=== PATIENT | female | born 1965 ===

== ENCOUNTER 2024-11-25 22:51 | Emergency (ER) | payer OTHER, SELFPAY ==
[2024-11-25 22:56] VITALS: BP 138/86
[2024-11-26 00:18] VITALS: BP 118/75
[2024-11-26 00:19] VITALS: BMI 31.6
--- NOTE | 2024-11-26 00:21 | ED.GENMED ---
History of Present Illness
General
Chief Complaint: Extremity Pain (non-traumatic)
Source: patient and family
Exam Limitations: none
Time Seen by Provider: 11/25/24 23:36
Nursing documentation reviewed up to this point in time: agreed with
History of Present Illness
History of Present Illness:
Patient presents ED secondary to persistent pain behind her right knee radiating up to her thigh and down to her calf, starting yesterday. Denies direct trauma. Denies loss of sensation or weakness. Pain is worse when ambulating or with any range
of motion. Denies previous history of similar symptoms. There is family history of blood clots however. Denies any chest pain or shortness of breath.
Past History
Past History
ED Past Medical History: GERD and Hypercholesterolemia
ED Past Surgical History: Gynecological and Other
Social History
Tobacco: Non-smoker
Alcohol: None
Drug: None
Personal:
Living: with family
Employment: Not employed
Family History
Family History: Other (Mother with cancer of the uterus)
Review of Systems
Review of Systems
Allergies reviewed?: Yes
All Other Systems: ROS reviewed and negative except as documented in HPI and ROS
Constitutional: Reports no symptoms
Musculoskeletal: Reports other (Knee and calf pain yes)
Skin: Reports no symptoms
Neurological: Reports no symptoms; Denies weakness or numbness
Phy Exam
Physical Exam
Physical Exam:
Physical Exam
General: no apparent distress, not acutely ill. afebrile
Head: nc/at. eomi
Neck: supple. normal range of motion
Neuro: alert and oriented x 3. no focal neurological deficits
Skin: no rash
Psychiatric: well kept. interactive and cooperative
Extremities: mild tenderness to palpation noted behind right knee without warmth/swelling/erythema. mild right calf tenderness to palpation, without swelling/ecchymosis
Course
Orders/Labs/Results
Orders:
Orders
11/26/24 00:03
US Legs, Right [US Periph Venous LOWER Ext RT] Urgent
Comment:
Reason For Exam: posterior knee pain w swelling
Vital Signs
Initial and Last Documented VS:
Initial Vital Signs
Temp Pulse Resp BP Pulse Ox
97.8 F 88 20 138/86 100
11/25/24 22:56 11/25/24 22:56 11/25/24 22:56 11/25/24 22:56 11/25/24 22:56
Last Documented Vital Signs
Temp Pulse Resp BP Pulse Ox
97.8 F 88 20 138/86 100
11/25/24 22:56 11/25/24 22:56 11/25/24 22:56 11/25/24 22:56 11/25/24 22:56
MDM/Problems Addressed
MDM/Problems Addressed:
US LE: no DVT.
Patient will be discharged home in stable condition, to the care of her family, with recommendation for pcp f/u, including potential repeat US LE, if symptoms persist.
ED Attending Note
-
Portions of this chart may have been created with voice recognition software.� Occasional wrong word or��sound alike� substitutions may have occurred due to the inherent limitations of voice recognition software.
Discharge Plan
Departure
Patient Disposition: Home (Routine Discharge)
Date of Disposition: 11/26/24
Time of Disposition: 01:09
Patient with high blood pressure during this ER visit?: Yes
Discharge Problem:
Leg pain
Instructions: Muscle and Bone Pain (DC)
Prescriptions:
No Action
pantoprazole 40 MG tablet,delayed release (DR/EC)
40 mg PO DAILY
multivitamin Tablet
1 tab PO DAILY
celecoxib 200 mg Capsule
200 mg PO HS
cetirizine 10 mg Tablet
10 mg PO HS
sucralfate 1 gram Tablet
1 g PO TID
famotidine 40 mg Tablet
40 mg PO HS
acetaminophen [Tylenol Extra Strength] 500 mg Capsule
1,000 mg PO PRN PRN (Reason: HEADACHE)
folic acid 1 mg Tablet
1 mg PO DAILY
montelukast 10 mg Tablet
10 mg PO DAILY
Pulmicort Flexhaler 90 mcg/actuation Aerosol Powdr Breath Activated
1 inh INHALATION DAILY PRN (Reason: sob)
methotrexate sodium 2.5 mg
4 tab PO .BID ONCE PER WEEK
prednisolone
1 mg PO DAILY
Referrals:
Afshan Christiansen MD [Family Provider] -
Activity Restrictions/Additional Instructions:
As discussed, please follow-up with your primary care physician for reevaluation, including repeat ultrasound in 1 week, if symptoms persist.
Interventions
Interventions:
*Risk Screen - Suicide Last Done: 11/25/24 22:56
*General Assessment Last Done: 11/26/24 00:19
*Neglect/Abuse Screening Last Done: 11/25/24 22:56
ED- Fall Risk Assessment Last Done: 11/26/24 00:19
*ED COVID-19 Vaccine History Last Done: 11/26/24 00:19
ED-Skin Assessment Last Done: 11/26/24 00:19
ED-Peripheral Vascular Assessment Last Done: 11/26/24 00:19
ED-Musculoskeletal Assessment Last Done: 11/26/24 00:19
Discharge Date and Time
Print Language: [place]
[2024-11-26 01:00] VITALS: BP 107/69
== END 2024-11-26 01:20 | disposition home or self-care (01) ==
LOC: EMR 22:51
PROVIDERS: EMERGENCY PHYSICIAN Emergency Medicine; FAMILY PHYSICIAN Internal Medicine
DX: M79.604 Pain in right leg (principal); E78.00 Pure hypercholesterolemia, unspecified; K21.9 Gastro-esophageal reflux disease without esophagitis
CPT/HCPCS: 99284; 93971

== ENCOUNTER 2025-10-15 16:45 | Emergency (ER) | payer OTHER, SELFPAY ==
[2025-10-15 16:57] VITALS: BP 132/77
[2025-10-15 17:24] LABS: Hematocrit 40.6 % (37.0-47.0); Hemoglobin 13.7 g/dL (12.0-16.0); Mean Corp Hgb Conc. 33.7 g/dL (33.0-37.0); Mean Corpuscular Volume 89.2 fL (81.0-99.0); Nucleated Red Blood Cells % 0 %; Platelet Count 327 10^3/uL (130-400); Red Cell Dist. Width 12.1 % (11.5-14.5)
[2025-10-15 17:43] LABS: HCG, Serum Qualitative Screen Negative
[2025-10-15 17:47] LABS: ALT (SGPT) 59 U/L (0-35); AST (SGOT) 50 U/L (14-36); Albumin 4.9 g/dl (3.5-5.0); Alkaline Phosphatase 95 U/L (38-126); Blood Urea Nitrogen 12 mg/dl (7-17); Calcium 9.9 mg/dl (8.4-10.2); Carbon Dioxide 21 mmol/L (22-30); Chloride 106 mmol/L (98-107); Glucose 146 mg/dl (70-99); Potassium 3.9 mmol/L (3.5-5.1); Sodium 137 mmol/L (135-145); Total Protein 8.3 g/dl (6.3-8.2); eGFR > 60.00
[2025-10-15 17:55] LABS: Troponin I < 0.012 ng/ml
[2025-10-15 18:24] VITALS: BP 136/64; BMI 31.2
--- NOTE | 2025-10-15 18:31 | ED.GENMED ---
History of Present Illness
General
Chief Complaint: Breathing Problem
Source: patient and spouse
Time Seen by Provider: 10/15/25 18:02
History of Present Illness
History of Present Illness:
59-year-old female presenting to the emergency department for evaluation of cough, shortness of breath, sore throat and sinus congestion which started yesterday, went to urgent care where she reportedly had COVID testing done that was negative and
given prescription for methylprednisolone but today with continued symptoms. No known sick contacts, recent travel or recent antibiotics. Patient did not take anything else for symptoms prior to arrival. States cough is nonproductive. No other
concerns presently.
Past History
Past History
ED Past Medical History: GERD and Hypercholesterolemia
ED Past Surgical History: Gynecological and Other
Social History
Tobacco: Non-smoker
Alcohol: None
Drug: None
Personal:
Living: with family
Employment: Not employed
Family History
Family History: Other (Mother with cancer of the uterus)
Review of Systems
Review of Systems
All Other Systems: ROS reviewed and negative except as documented in HPI and ROS
Phy Exam
Physical Exam
Physical Exam:
GENERAL: Alert , in no apparent distress
HEAD: Normocephalic atraumatic
EYE: conjunctiva clear
NECK: Supple, no significant adenopathy.
ENT: o/p clr, mmm. No tonsillar edema or exudates, uvula midline, airway patent
CARDIAC: Regular rate and rhythm
LUNGS: Clear breath sounds bilaterally, no acute respiratory distress, no wheezes/rales/rhonchi
NEUROLOGICAL: Alert and oriented
SKIN: Warm and dry, skin intact.
MUSCULOSKELETAL: well perfused.
PSYCH: Normal and appropriate interaction.
Scores
Heart Failure Risk
Heart Failure Risk Score: Not Applicable
Heart Score for Chest Pain Patients
STEMI patient?: Not applicable
Withdrawal Assessment of Alcohol
Withdrawal Assessment Completed?: Not applicable
Course
Orders/Labs/Results
Orders:
Orders
10/15/25 16:46
Electrocardiogram (*1) Urgent
Reason for Study: Chest Pain
EKG- Treatment ONCE
10/15/25 17:06
Test Result ONCE
10/15/25 17:14
Complete Blood Count/With Diff Urgent
Comprehensive Metabolic Panel Urgent
HCG, Serum Qualitative Screen Urgent
Troponin I Urgent
10/15/25 18:03
CR Chest - 2 Views Urgent
Comment:
Reason For Exam: cough
10/15/25 18:28
COVID-19 Antigen Urgent
Source: Nasal Swab
Influenza A+B Rapid Molecular Urgent
MAISHA Source: Nasal Swab
Specimen Description:
10/15/25 18:29
Rapid Strep Group A Urgent
MAISHA Source: Throat/Pharynx
Specimen Description:
Date Specimen was Collected: 10/15/25
Time Specimen was Collected: 18:28
Abnormal Lab Results
10/15/25
17:14
MPV 10.6 H fL
(7.4-10.4)
Absolute Neuts (auto) 8.5 H 10^3/uL
(1.4-6.5)
Absolute Lymphs (auto) 0.4 L 10^3/uL
(1.2-3.4)
Neutrophils % 92.0 H %
(42.2-75.2)
Lymphocytes % 3.8 L %
(20.5-51.1)
Carbon Dioxide 21 L mmol/L
(22-30)
Glucose 146 H mg/dl
(70-99)
AST 50 H U/L
(14-36)
ALT 59 H U/L
(0-35)
Total Protein 8.3 H g/dl
(6.3-8.2)
12/25/25 17:14
10/15/25 17:14
Vital Signs
Initial and Last Documented VS:
Initial Vital Signs
Temp Pulse Resp BP Pulse Ox
99 F 99 18 132/77 97
10/15/25 16:57 10/15/25 16:57 10/15/25 16:57 10/15/25 16:57 10/15/25 16:57
Last Documented Vital Signs
Temp Pulse Resp BP Pulse Ox
99.2 F 86 18 136/64 96
10/15/25 18:24 10/15/25 18:24 10/15/25 18:24 10/15/25 18:24 10/15/25 18:37
MDM/Problems Addressed
Differential Diagnosis Includes:
Influenza
Covid
Pneumonia
Strep Pharyngitis
Viral syndrome
Sinusitis
MDM/Problems Addressed:
59-year-old female presenting to the ER for evaluation of cough, shortness of breath, sinus congestion and sore throat x 1 day. Negative covid test at yesterday. Afebrile here. Patient in no acute distress, unlabored respirations. Labs initiated
on arrival show no leukocytosis. There is slight transaminitis which could be viral induced. I did add on a COVID, flu and chest x-ray ordered as well as rapid strep test. Anticipate discharge home.
*Radiology
Radiology exam reviewed: preliminary read by ED provider (Unremarkable chest x-ray)
*Pulse Oximetry
SaO2: 96
Oxygen Mode of Delivery: Room air
Patient hypoxic: no
*Critical Care Note
Total Time (30-74mins, 75-104mins- exclusive of procedures): Not Applicable
Patient Management
Escalation/DeEscalation of care consider admission/obs:
Patient's workup shows patient is flu a positive. Chest x-ray without any abnormalities. Will initiate patient on Tamiflu. Other [id number] recommendations advised. Otherwise stable for discharge home
ED Attending Note
-
Portions of this chart may have been created with voice recognition software.� Occasional wrong word or��sound alike� substitutions may have occurred due to the inherent limitations of voice recognition software.
Discharge Plan
Departure
Patient Disposition: Home (Routine Discharge)
Date of Disposition: 10/15/25
Time of Disposition: 19:19
Patient with high blood pressure during this ER visit?: No
Discharge Problem:
Influenza A
Instructions: Flu in adults (DC)
Prescriptions:
New
oseltamivir [Tamiflu] 75 mg capsule
75 mg PO BID Qty: 10 0RF
No Action
pantoprazole 40 MG tablet,delayed release (DR/EC)
40 mg PO DAILY
multivitamin Tablet
1 tab PO DAILY
celecoxib 200 mg Capsule
200 mg PO HS
cetirizine 10 mg Tablet
10 mg PO HS
sucralfate 1 gram Tablet
1 g PO TID
famotidine 40 mg Tablet
40 mg PO HS
acetaminophen [Tylenol Extra Strength] 500 mg Capsule
1,000 mg PO PRN PRN (Reason: HEADACHE)
folic acid 1 mg Tablet
1 mg PO DAILY
montelukast 10 mg Tablet
10 mg PO DAILY
Pulmicort Flexhaler 90 mcg/actuation Aerosol Powdr Breath Activated
1 inh INHALATION DAILY PRN (Reason: sob)
methotrexate sodium 2.5 mg
4 tab PO .BID ONCE PER WEEK
prednisolone
1 mg PO DAILY
Referrals:
Afshan Christiansen MD [Family Provider, Internal Medicine]
Interventions
Interventions:
*General Assessment Last Done: 10/15/25 18:26
*Neglect/Abuse Screening Last Done: 10/15/25 18:26
*ED COVID-19 Vaccine History Last Done: 10/15/25 18:26
*ED Influenza Vaccine History Last Done: 10/15/25 18:26
[facility] Fall Risk Assessment Tool Last Done: 10/15/25 18:27
*Risk Screen - Suicide (C-SSRS) Last Done: 10/15/25 18:26
*Nursing Disposition Last Done: 10/15/25 19:40
ED- Cardiac Assessment Last Done: 10/15/25 18:30
ED- Pulmonary Assessment Last Done: 10/15/25 18:30
Discharge Date and Time
Discharge Date/Time: 10/15/25 19:41
Print Language: [place]
[2025-10-15 19:08] LABS: COVID-19 Antigen Negative (Negative)
== END 2025-10-15 19:41 | disposition home or self-care (01) ==
LOC: EMR 16:45
PROVIDERS: Emergency Medicine; Physician Assistant Medical; EMERGENCY PHYSICIAN Student in an Organized Health Care Education/Training Program; FAMILY PHYSICIAN Internal Medicine
DX: J10.1 Influenza due to other identified influenza virus with other respiratory manifestations (principal); E78.00 Pure hypercholesterolemia, unspecified; K21.9 Gastro-esophageal reflux disease without esophagitis
CPT/HCPCS: 99284; 71046; 80053; 84484; 84703; 85025; 87070; 87502; 87811; 87880; 93005